=== PATIENT | female | born 1975 | race Caucasian/White ===

== ENCOUNTER 2021-01-21 06:35 | Emergency (ER) | payer OTHER, SELFPAY ==
[2021-01-21 06:38] VITALS: BP 125/84; PULSE 65; RESP 18; TEMP 36.8; O2SAT 99; BMI 36.8
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
[2021-01-21 06:55] VITALS: BMI 43.8
[2021-01-21 06:57] LABS: POC Glucose,Bedside 127 (70-110)
--- NOTE | 2021-01-21 07:00 | PC.NURSE ---
notified radiology of ct order
--- NOTE | 2021-01-21 07:10 | PC.NURSE ---
pt to ct
[2021-01-21 07:33] VITALS: BP 123/81; PULSE 57; RESP 18; TEMP 36.8; O2SAT 95
== END 2021-01-21 07:33 | disposition home or self-care (01) ==
PROVIDERS: Emergency Provider Emergency Medicine; PCP Family Medicine
DX: G44.319 Acute post-traumatic headache, not intractable (principal); V49.3XXA Car occupant (driver) (passenger) injured in unspecified nontraffic accident, initial encounter; Y92.488 Other paved roadways as the place of occurrence of the external cause
CPT/HCPCS: 70450; 82962; 99282

== ENCOUNTER 2021-02-03 17:24 | Emergency (ER) | payer OTHER, SELFPAY ==
[2021-02-03 18:16] VITALS: BP 95/57; PULSE 70; RESP 20; TEMP 37.2; O2SAT 98; BMI 33.5
--- NOTE | 2021-02-03 18:23 | XR_ITS ---
PROCEDURE INFORMATION: Exam: XR Chest Exam date and time: 02/03/2021 6:23 PM Age: 46 years old Clinical indication: Condition or disease; Patient HX: Covid positive TECHNIQUE: Imaging protocol: XR of the chest. Views: 1 view. COMPARISON: No relevant prior studies available. FINDINGS: Lungs: There are patchy interstitial infiltrates noted within both lung mclaughlin. Area of greatest involvement is within the right mid lung field. Many of the infiltrates have a peripheral distribution. Pleural spaces: Unremarkable. No pleural effusion. No pneumothorax. Heart/Mediastinum: Unremarkable. No cardiomegaly. Bones/joints: Unremarkable. Soft tissues: There is a metallic body which projects over the lateral aspect of the left 5th rib. This could could be within subcutaneous soft tissues or skin. IMPRESSION: There are bilateral patchy interstitial infiltrates noted within both lung mclaughlin. Greatest involvement is present within the left mid lung field. Progress examination is suggested..
--- NOTE | 2021-02-03 18:59 | HMH.EDGENADL ---
ED Disposition Condition on Discharge: Good - Critical Care Critical Care Time: No <Darrian Chao - Last Filed: 02/03/21 19:46> <Kevin Ledezma - Last Filed: 02/03/21 21:46> Clinical Impression: COVID-19 Disposition: Home, Self-Care Instructions: DI for COVID-19 (Suspected or Confirmed ) Additional Instructions: call pcp in am and recheck if needed Prescriptions: dexAMETHasone [Decadron] 6 mg PO DAILY #7 tab Transmission Status: Pending to [facility]/pharmacy #[id number] Referrals: Althea Gonzalez [Primary Care Provider] - Attestation: On 02/03/21, the high probability of a clinically significant, sudden or life threatening deterioration of the following system(s) required my full and direct attention, intervention and personal management. The time I documented below is in addition to time spent performing reported procedures but includes the following listed in this critical care notation. Medical Decision Making - Medical Records Medical records reviewed: Yes: I reviewed the patient's medical records. - Maged Inquiry Pt receiving controlled substance: No <Darrian Chao - Last Filed: 02/03/21 19:46> - Lab Data Lab results reviewed: Yes: I reviewed the patient's lab results. Result diagrams: 02/03/21 19:55 02/03/21 19:55 - Radiology Data #1 Image(s): Chest Image Reviewed: Yes I have reviewed radiologist's interpretation Preliminary Findings: Abnormal - CT Data CT Scan: Chest Time Received: 21:[address] Reviewed: Yes: I have viewed the radiologist's interpretation Preliminary Findings: Abnormal - ECG Data Tracing #1 Normal Sinus Rhythm: Yes Ischemic changes: non-specific ST-T wave changes <Kevin Ledezma - Last Filed: 02/03/21 21:46> Vital Signs: 02/03/21 18:16 Temperature 98.9 F Temperature Source Oral Pulse Rate [Right Radial] 70 Respiratory Rate 20 Blood Pressure [Right Arm] 95/57 L Blood Pressure Mean [Right Arm] 69 02 Sat by Pulse Oximetry 98 Oxygen Delivery Method Room Air - Lab Data Lab Results 02/03/21 19:55: WBC 5.6, RBC 5.41 H, Hgb 16.0, Hct 45.0, MCV 83.0, MCH 29.6, MCHC 35.7 H, RDW 13.3, Plt Count 298, MPV 9.5, Neut % (Auto) 75.3, Lymph % (Auto) 18.7, [place] % (Auto) 4.7, Eos % (Auto) 0.8, Baso % (Auto) 0.5, Neut # (Auto) 4.2, Lymph # (Auto) 1.1, [place] # (Auto) 0.3, Eos # (Auto) 0.1, Baso # (Auto) 0.0 02/03/21 19:55: Sodium 141, Potassium 3.2 L, Chloride 100, Carbon Dioxide 31 H, Anion Gap 13.2, BUN 16, Creatinine 0.70, Estimated Creat Clear 140, Estimated GFR 90, Est GFR ( Amer) 109, Glucose 184 H, Calcium 10.4 H, Total Bilirubin 0.5, AST 42 H, ALT 22, Alkaline Phosphatase 99, Troponin I < 0.01, Total Protein 7.4, Albumin 4.1, Globulin 3.3 H, Albumin/Globulin Ratio 1.2 Orders (Tests/Meds): ED MEDICATIONS Generic Name Dose Route Start Last Admin Trade Name Freq PRN Reason Stop Dose Admin Sodium Chloride 1,000 mls @ 999 mls/hr 02/03/21 20:30 02/03/21 20:35 Sod Chlor 0.9% 1000ml Bag IV 02/03/21 21:30 999 mls/hr .[id number] SOFI Administration Discontinued Medications Generic Name Dose Route Start Last Admin Trade Name Freq PRN Reason Stop Dose Admin Dexamethasone Sodium Phosphate 10 mg 02/03/21 20:29 02/03/21 20:36 Dexamethasone 4mg/Ml 5ml Mdv IV 02/03/21 20:30 10 mg ONCE ONE Administration Iopamidol 70 ml 02/03/21 20:52 02/03/21 20:55 Iopamidol-370 (76%);100ml Bottle IV 02/03/21 20:53 70 ml ONCE ONE Administration Sodium Chloride 50 ml 02/03/21 20:52 02/03/21 20:55 0.9 % Sodium Chloride 50 Ml Vial IV 02/03/21 20:53 50 ml ONCE ONE Administration Sodium Chloride 10 ml 02/03/21 20:52 02/03/21 20:55 Sodium Chloride 0.9% 10ml Syr (Rad Only) IV 02/03/21 20:53 10 ml ONCE ONE Administration Medical Decision Narrative: 46yo F evaluated for Covid symptoms. Patient is in no acute distress on initial evaluation. Her O2 saturation is 91 to 95% on room air. Physical exam is benign. Blood work
[2021-02-03 19:00] VITALS: BP 104/66; PULSE 80; O2SAT 94
[2021-02-03 19:30] VITALS: BP 107/79; PULSE 80; O2SAT 92
--- NOTE | 2021-02-03 19:55 | ECG_ITS ---
APPROVED REPORT Exam: Resting ECG HR:75 bpm ECG Measurements Heart Rate 75 AXES MD 134 P 14 QRSd 78 QRS 43 QT 398 T 11 QTc 444 Conclusion Normal sinus rhythm Normal ECG Electronically signed by : Chito Goodrich MD 02/04/2021 21:02:53
[2021-02-03 20:00] VITALS: BP 124/86; PULSE 73; RESP 20; O2SAT 93
[2021-02-03 20:21] LABS: Alanine Aminotransferase 22 U/L (12-78); Albumin Level 4.1 g/dl (3.5-5.0); Albumin/Globulin Ratio 1.2 (1.1-1.8); Alkaline Phosphatase 99 U/L (38-126); Anion Gap 13.2 mEq/L (5-15); Aspartate Amino Transferase 42 U/L (14-36); Bilirubin,Total 0.5 mg/dl (0.2-1.3); Blood Urea Nitrogen 16 mg/dl (7-17); Calcium 10.4 mg/dl (8.4-10.2); Carbon Dioxide 31 mmol/L (22.0-30.0); Chloride 100 mmol/L (98-107); Creatinine Clearance Estimated 140 mL/min (50-200); Estimated Glomerular Filt Rate 90 ml/min (>60); GFR (African American) 109 ML/MIN (>60); Globulin 3.3 g/dL (1.3-3.2); Glucose 184 mg/dl (74-100); Potassium 3.2 mmoL/L (3.5-5.1); Sodium 141 mmol/L (136-145); Total Protein,Serum 7.4 g/dl (6.3-8.2)
--- NOTE | 2021-02-03 20:26 | CT_ITS ---
PROCEDURE INFORMATION: Exam: CTA Chest With Contrast Exam date and time: 02/03/2021 8:26 PM Age: 46 years old Clinical indication: Shortness of breath; Chest pressure; Patient HX: SOA, chest pain, covid; Additional info: SOB TECHNIQUE: Imaging protocol: Computed tomographic angiography of the chest with contrast. 3D rendering (Not supervised by radiologist): MIP and/or 3D reconstructed images were created by the technologist. Radiation optimization: All CT scans at this facility use at least one of these dose optimization techniques: automated exposure control; mA and/or kV adjustment per patient size (includes targeted exams where dose is matched to clinical indication); or iterative reconstruction. Contrast material: ISO 370; Contrast volume: 70 ml; Contrast route: INTRAVENOUS (IV); COMPARISON: CR XR CHEST PORTABLE 02/03/2021 6:52 PM FINDINGS: Pulmonary arteries: The pulmonary trunk, main, and branch pulmonary arteries contain no filling defects. Aorta: Unremarkable. No aortic aneurysm. No aortic dissection. Lungs: Extensive amorphous infiltrates are noted within both lung mclaughlin. No predilection for upper or lower lobes. Many of the infiltrates have a peripheral distribution. 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 Pleural spaces: Unremarkable. No pneumothorax. No pleural effusion. Heart: No cardiomegaly. No pericardial effusion. Heart RV/LV ratio: Within normal limits. Coronary arteries: There is no evidence of significant coronary artery calcifications. Mediastinal space: No evidence of mediastinal or hilar mass. Lymph nodes: Unremarkable. No enlarged lymph nodes. Bones/joints: Unremarkable. No acute fracture. Soft tissues: There is a moderate hiatal hernia. Changes of sleeve gastrectomy are noted. Hepatomegaly. Cholecystectomy has been performed. IMPRESSION: 1. 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 2. No evidence of main or branch pulmonary embolism. 3. Moderate hiatal hernia. 4. Changes of sleeve gastrectomy are noted. 5. Hepatomegaly. Cholecystectomy has been performed.
[2021-02-03 20:30] LABS: Basophils % 0.5 % (0.1-2.0); Eosinophils # 0.1 K/mm3 (0.0-0.4); Eosinophils % 0.8 % (0.1-12.0); Lymphocytes # 1.1 K/mm3 (0.7-4.5); Lymphocytes % 18.7 % (10-50); Mean Corpuscular HGB Conc 35.7 g/dL (31.8-35.4); Mean Corpuscular Hemoglobin 29.6 pg (27.0-31.2); Mean Platelet Volume 9.5 fl (7.4-10.4); Monocytes # 0.3 K/mm3 (0.1-1.0); Monocytes % 4.7 % (1.7-9.3); Neutrophils # 4.2 K/mm3 (1.8-7.8); Neutrophils % 75.3 % (37.0-80.0); Platelet Count 298 K/mm3 (142-424); Red Blood Count 5.41 M/mm3 (4.20-5.40); Red Cell Distribution Width 13.3 % (11.5-17.5); White Blood Count 5.6 K/mm3 (4.8-10.8)
[2021-02-03 20:35] LABS: Troponin I < 0.01 ng/ml (0.00-0.034)
[2021-02-03 21:00] VITALS: BP 112/72; PULSE 65; O2SAT 93
[2021-02-03 21:57] VITALS: BP 119/73; PULSE 68; RESP 20; TEMP 37; O2SAT 94
== END 2021-02-03 22:01 | disposition home or self-care (01) ==
PROVIDERS: Emergency Provider Family Medicine; PCP Family Medicine
DX: U07.1 COVID-19 (principal)
CPT/HCPCS: 71045; 71275; 80053; 84484; 85025; 93005; 96365; 96375; 99283; Q9967

== ENCOUNTER → 2021-02-12 09:37 | Outpatient (CLI) | payer OTHER, SELFPAY ==
--- NOTE | 2021-02-12 09:48 | XR_ITS ---
PROCEDURE: XR CHEST 2V CLINICAL HISTORY: CHEST PAIN COMPARISON: CT CT ANGIO CHEST PE PROTOCOL from 02/03/2021 CR XR CHEST PORTABLE from 02/03/2021 FINDINGS: The cardiomediastinal silhouette and pulmonary vascularity are within normal limits. Patchy areas of consolidation once again noted bilaterally. These however have shown improvement from the previous exam. There is a metallic artifact along the chest wall anteriorly on the left. No evidence of pneumothorax. No effusions. No acute bony abnormalities. IMPRESSION: Bilateral ground-glass opacities consistent with Covid19 pneumonia which have shown some improvement. Dictated by: Delroy Moore MD 02/12/2021 16:08 Delroy Moore MD in [place] 02/12/2021 16:08
== END ==
PROVIDERS: PCP Family Medicine; Visit Provider Family Medicine
DX: R07.9 Chest pain, unspecified (principal)
CPT/HCPCS: 71046

== ENCOUNTER → 2021-03-14 10:30 | Outpatient (CLI) | payer OTHER, SELFPAY | PROVIDERS: PCP Family Medicine; Visit Provider Nurse Practitioner | DX: Z20.822 Contact with and (suspected) exposure to COVID-19 (principal) | CPT/HCPCS: C9803; U0003; U0005 ==

== ENCOUNTER 2024-01-15 19:26 | Emergency (ER) | payer BC, SELFPAY ==
[2024-01-15 19:27] VITALS: BP 157/107; PULSE 83; RESP 18; TEMP 36.6; O2SAT 97; BMI 40.8
[2024-01-15 19:32] VITALS: BP 157/107; PULSE 83; O2SAT 96
[2024-01-15 19:35] VITALS: PULSE 80; O2SAT 96
--- NOTE | 2024-01-15 19:35 | HMH.EDGENADL ---
Discharge Plan Disposition Patient Disposition: Home, Self-Care Condition: Good Prescriptions Prescriptions: New cefdinir 300 mg capsule 300 mg PO BID 10 Days Qty: 20 0RF phenazopyridine [Pyridium] 200 mg tablet 200 mg PO Q8H Qty: 6 0RF No Action dexamethasone 6 MG tablet 6 mg PO DAILY Qty: 7 0RF Referrals Follow up/Referrals: Althea Gonzalez [Primary Care Provider] - See instructions Activity Restrictions/Add. Instructions Additional Instructions/Restrictions: Increase fluids and rest. Take medications as directed. If symptoms do not improve please follow-up with your primary care physician or return to the ED Clinical Impressions Clinical Impression: Urinary tract infection Instructions Patient Instructions: DI for Urinary Tract Infection (UTI), DI for Urinary Tract Infection in Children Print Language Print Language: Malay Discharge ED Provider: Niels Diamond General Adult HPI <Gayathri Powell (ED), [employer] - Last Filed: 01/15/24 20:04> General Chief complaint: Urogenital-Female Stated complaint: Bloody urine,frequency and pain with urination Time Seen by Provider: 01/15/24 19:27 History of Present Illness HPI narrative: This is a 48-year-old female who presents to the ED today for complaint of blood in her urine, urgency, frequency and lower abdominal pain. She says pain started around noon today. No complaint of fevers, chills, nausea or vomiting. No other symptoms today. Related Data Previous Rx's ?Medication ?Instructions ?Recorded dexamethasone 6 mg tablet 6 mg PO DAILY #7 tabs 02/03/21 cefdinir 300 mg capsule 300 mg PO BID 10 days #20 caps 01/15/24 phenazopyridine 200 mg tablet 200 mg PO Q8H 6 doses #6 tabs 01/15/24 (Pyridium) Allergies Allergy/AdvReac Type Severity Reaction Status Date / Time No Known Allergies Allergy Verified 01/21/21 06:55 PFSH <Gayathri Powell (ED), [employer] - Last Filed: 01/15/24 20:04> PFS Disclaimer: The information contained in this section may have been updated after the patient was seen, as this information can be updated by other users. Social History (Updated 01/15/24 @ 20:04 by Gayathri Powell (ED), [employer]) Smoking Status: Never smoker alcohol intake: never current occupational status: employed Travel in the last 8 weeks: None Other Medical History Have you received the Flu Vaccine for this season: No Have you received the Pneumonia Vaccine: No <Gayathri Powell (ED), [employer] - Last Filed: 01/15/24 20:04> ROS Obtained: Yes Systems reviewed as appropriate & no additional complaints except as documented Constitutional Constitutional: Reports as per HPI Physical Exam <Gayathri Powell (ED), [employer] - Last Filed: 01/15/24 20:04> General General appearance: alert and in no apparent distress Head Head exam: atraumatic and normocephalic Eye Eye exam: Present normal appearance, PERRL and EOMI ENT ENT exam: Present normal exam, normal oropharynx and mucous membranes moist Neck Neck exam: Present normal inspection, full ROM and trachea midline Chest Chest inspection: Present normal inspection Respiratory Respiratory exam: Present normal lung sounds bilaterally Cardiovascular Cardiovascular exam: Present regular rate, normal rhythm, normal heart sounds, +S1 and +S2 Abdominal Exam Abdominal exam: Present soft and normal bowel sounds Neurological Exam Neurological exam: Present alert, oriented X3 and normal gait Skin Skin exam: Present warm, dry and intact Medical Decision Making <Gayathri Powell (ED), [employer] - Last Filed: 01/15/24 20:04> Medical Records Screening: Per USPSTF and CDC recommendations, given the prevalence of disease in our region, it is our hospital?s policy to screen for HIV and viral Hepatitis for all patients aged 18 and over and those with ongoing risk factors. Maged Inquiry Pt receiving controlled substance: No Maged was queried for this patient: No Vital Signs: 01/15/24 19:27 01/15/24 19:32 01/15/24 19:35 Temperature 97.9 F Temperature Source Oral Pulse Rate 83 80 Pulse Rate [Right Radial] 83 Respiratory Rate 18 Blood Pressure 157/107 H Blood Pressure [Right Arm] 157/107 H Blood Pressure Mean Blood Pressure Mean [Right Arm] 123 Blood Pressure Source [Right Arm] Automatic Cuff Blood Pressure Position [Right Arm] Supine 02 Sat by Pulse Oximetry 97 96 96 Oxygen Delivery Method Room Air 01/15/24 20:20 01/15/24 20:35 Temperature 97.8 F Temperature Source Pulse Rate 88 Pulse Rate [Right Radial] Respiratory Rate 16 Blood Pressure 129/76 128/78 Blood Pressure [Right Arm] Blood Pressure Mean 93 Blood Pressure Mean [Right Arm] Blood Pressure Source [Right Arm] Blood Pressure Position [Right Arm] 02 Sat by Pulse Oximetry Oxygen Delivery Method Lab Data Lab Results 01/15/24 19:31: Urine Color Red, Urine Appearance Cloudy, Urine pH 6.5, Ur Specific [place] >= 1.030, Urine Protein 3+ A, Urine Glucose (UA) 1+, Urine Ketones Trace, Urine Blood 3+ A, Urine Nitrate Positive, Urine Bilirubin Negative, Urine Urobilinogen 1.0, Ur Leukocyte Esterase Trace, Urine RBC 50-100, Urine WBC Occasional, Ur Squamous Epith Cells Occasional, Urine Bacteria Trace, Urine HCG, Qual Negative 01/15/24 19:42: WBC 9.8, RBC 5.05, Hgb 14.2, Hct 41.7, MCV 82.7, MCH 28.1, MCHC 34.0, RDW 13.4, Plt Count 324, MPV 8.5, Neut % (Auto) 69.2, Lymph % (Auto) 23.5, [place] % (Auto) 5.0, Eos % (Auto) 1.5, Baso % (Auto) 0.8, Neut # (Auto) 6.8, Lymph # (Auto) 2.3, [place] # (Auto) 0.5, Eos # (Auto) 0.2, Baso # (Auto) 0.1, Sodium 139, Potassium 3.4 L, Chloride 102, Carbon Dioxide 29, Anion Gap 11.4, BUN 14, Creatinine 0.60, Estimated Creat Clear 195, Estimated GFR 107, Est GFR ( Amer) 129, Glucose 229 H, Calcium 9.5, Total Bilirubin 0.5, AST 27, ALT 25, Alkaline Phosphatase 64, Total Protein 7.4, Albumin 4.2, Globulin 3.2, Albumin/Globulin Ratio 1.3, Hepatitis C Antibody Non reactive, HIV 1&2 Antibody Rapid Nonreactive 01/15/24 19:42 01/15/24 19:42 Orders (Tests/Meds): ED MEDICATIONS Discontinued Medications Generic Name Dose Route Start Last Admin Trade Name Freq PRN Reason Stop Dose Admin Cefdinir 300 mg 01/15/24 20:27 01/15/24 20:30 Cefdinir 300mg Capsule PO 01/15/24 20:28 300 mg ONCE ONE Administration Phenazopyridine HCl 200 mg 01/15/24 20:26 01/15/24 20:30 Phenazopyridine 200mg Tablet PO 01/15/24 20:27 200 mg ONCE ONE Administration ORDERS Category Date Time Status CBC w/Auto Diff [Complete Blood Count Auto Diff] Stat Lab 01/15/24 19:42 Completed CMP [Comprehensive Metabolic Panel] Stat Lab 01/15/24 19:42 Completed HIV (1&2) Antibody Rapid Stat Lab 01/15/24 19:42 Completed Hep C Ab with Reflex to RNA Stat Lab 01/15/24 19:42 Completed Urinalysis-Acute [Urinalysis and Microscopic] Stat Lab 01/15/24 19:31 Completed Urine , HCG Qual. Stat Lab 01/15/24 19:31 Completed Medical Decision Narrative: Insert review patient is a 48-year-old female presenting to the emergency department for evaluation of blood in urine, frequency and urgency that started at noon today. She has not had fevers or chills no nausea or vomiting. Patient is hemodynamically stable and nontoxic-appearing upon arrival, afebrile. Differential diagnosis includes UTI, kidney stone although I did consider a CT scan patient has no history this is less likely amongst others. Workup will be conducted with hematologic labs. Initial inventions include no interventions here in the ED. Initial workup reviewed by me hematologic labs are remarkable for UTI. Formal imaging considered but not done as imaging not needed. Patient safe for discharge home <Niels Diamond MD - Last Filed: 01/18/24 07:17> Vital Signs: 01/15/24 19:27 01/15/24 19:32 01/15/24 19:35 Temperature 97.9 F Temperature Source Oral Pulse Rate 83 80 Pulse Rate [Right Radial] 83 Respiratory Rate 18 Blood Pressure 157/107 H Blood Pressure [Right Arm] 157/107 H Blood Pressure Mean Blood Pressure Mean [Right Arm] 123 Blood Pressure Source [Right Arm] Automatic Cuff Blood Pressure Position [Right Arm] Supine 02 Sat by Pulse Oximetry 97 96 96 Oxygen Delivery Method Room Air 01/15/24 20:20 01/15/24 20:35 Temperature 97.8 F Temperature Source Pulse Rate 88 Pulse Rate [Right Radial] Respiratory Rate 16 Blood Pressure 129/76 128/78 Blood Pressure [Right Arm] Blood Pressure Mean 93 Blood Pressure Mean [Right Arm] Blood Pressure Source [Right Arm] Blood Pressure Position [Right Arm] 02 Sat by Pulse Oximetry Oxygen Delivery Method Lab Data Lab Results 01/15/24 19:31: Urine Color Red, Urine Appearance Cloudy, Urine pH 6.5, Ur Specific [place] >= 1.030, Urine Protein 3+ A, Urine Glucose (UA) 1+, Urine Ketones Trace, Urine Blood 3+ A, Urine Nitrate Positive, Urine Bilirubin Negative, Urine Urobilinogen 1.0, Ur Leukocyte Esterase Trace, Urine RBC 50-100, Urine WBC Occasional, Ur Squamous Epith Cells Occasional, Urine Bacteria Trace, Urine HCG, Qual Negative 01/15/24 19:42: WBC 9.8, RBC 5.05, Hgb 14.2, Hct 41.7, MCV 82.7, MCH 28.1, MCHC 34.0, RDW 13.4, Plt Count 324, MPV 8.5, Neut % (Auto) 69.2, Lymph % (Auto) 23.5, [place] % (Auto) 5.0, Eos % (Auto) 1.5, Baso % (Auto) 0.8, Neut # (Auto) 6.8, Lymph # (Auto) 2.3, [place] # (Auto) 0.5, Eos # (Auto) 0.2, Baso # (Auto) 0.1, Sodium 139, Potassium 3.4 L, Chloride 102, Carbon Dioxide 29, Anion Gap 11.4, BUN 14, Creatinine 0.60, Estimated Creat Clear 195, Estimated GFR 107, Est GFR ( Amer) 129, Glucose 229 H, Calcium 9.5, Total Bilirubin 0.5, AST 27, ALT 25, Alkaline Phosphatase 64, Total Protein 7.4, Albumin 4.2, Globulin 3.2, Albumin/Globulin Ratio 1.3, Hepatitis C Antibody Non reactive, HIV 1&2 Antibody Rapid Nonreactive Orders (Tests/Meds): ED MEDICATIONS Discontinued Medications Generic Name Dose Route Start Last Admin Trade Name Freq PRN Reason Stop Dose Admin Cefdinir 300 mg 01/15/24 20:27 01/15/24 20:30 Cefdinir 300mg Capsule PO 01/15/24 20:28 300 mg ONCE ONE Administration Phenazopyridine HCl 200 mg 01/15/24 20:26 01/15/24 20:30 Phenazopyridine 200mg Tablet PO 01/15/24 20:27 200 mg ONCE ONE Administration ORDERS Category Date Time Status CBC w/Auto Diff [Complete Blood Count Auto Diff] Stat Lab 01/15/24 19:42 Completed CMP [Comprehensive Metabolic Panel] Stat Lab 01/15/24 19:42 Completed HIV (1&2) Antibody Rapid Stat Lab 01/15/24 19:42 Completed Hep C Ab with Reflex to RNA Stat Lab 01/15/24 19:42 Completed Urinalysis-Acute [Urinalysis and Microscopic] Stat Lab 01/15/24 19:31 Completed Urine , HCG Qual. Stat Lab 01/15/24 19:31 Completed Medical Decision Narrative: Insert review patient is a 48-year-old female presenting to the emergency department for evaluation of blood in urine, frequency and urgency that started at noon today. She has not had fevers or chills no nausea or vomiting. Patient is hemodynamically stable and nontoxic-appearing upon arrival, afebrile. Differential diagnosis includes UTI, kidney stone although I did consider a CT scan patient has no history this is less likely amongst others. Workup will be conducted with hematologic labs. Initial inventions include no interventions here in the ED. Initial workup reviewed by me hematologic labs are remarkable for UTI. Formal imaging considered but not done as imaging not needed and symptoms explained by patient's workup.. Patient safe for discharge home I was consulted by the ANNI, and we discussed the complexity of the problems being addressed. I approved the treatment and management plan for this patient's care in the Emergency Department, thus performing a substantive portion of the medical decision making. Niels Diamond MD Critical Care <Gayathri Powell (ED), [employer] - Last Filed: 01/15/24 20:04> Critical Care Time Critical Care Time: No
[2024-01-15 19:38] LABS: Bilirubin,Urine Negative (Negative); Blood, Urine 3+ (Negative); Glucose,Urine (UA) 1+ (Negative); Ketones,Urine TRACE (Negative); Leukocyte Esterase,Urine TRACE (Negative); Nitrate,Urine POSITIVE (Negative); PH,Urine 6.5 (5.0-8.5); Protein,Urine 3+ (Negative); Specific Gravity, Urine >= 1.030 (1.005-1.030)
[2024-01-15 19:39] LABS: Appearance,Urine Cloudy (Clear); Color,Urine Red (Yellow); Microscopic, Urine URINE MICROSCOPIC (MICROSCOPIC)
[2024-01-15 19:40] LABS: Urine Pregnancy, HCG Qual. Negative (Negative)
[2024-01-15 19:52] LABS: Bacteria,Urine Trace /lpf; RBC,Urine 50-100 #/hpf (0-3); Squamous Epithelial Cell,Urine Occasional #/hpf (0-5); WBC,Urine Occasional #/hpf (0-3)
[2024-01-15 19:57] LABS: Albumin Level 4.2 g/dl (3.5-5.0); Chloride 102 mmol/L (98-107); Potassium 3.4 mmoL/L (3.5-5.1); Sodium 139 mmol/L (136-145)
[2024-01-15 19:59] LABS: Blood Urea Nitrogen 14 mg/dl (7-17); Creatinine Clearance Estimated 195 mL/min (50-200); Estimated Glomerular Filt Rate 107 ml/min (>60); GFR (African American) 129 ML/MIN (>60)
[2024-01-15 20:00] LABS: Alanine Aminotransferase 25 U/L (12-78); Albumin/Globulin Ratio 1.3 (1.1-1.8); Alkaline Phosphatase 64 U/L (38-126); Anion Gap 11.4 mEq/L (5-15); Aspartate Amino Transferase 27 U/L (14-36); Bilirubin,Total 0.5 mg/dl (0.2-1.3); Calcium 9.5 mg/dl (8.4-10.2); Carbon Dioxide 29 mmol/L (22.0-30.0); Globulin 3.2 g/dL (1.3-3.2); Glucose 229 mg/dl (74-100); Total Protein,Serum 7.4 g/dl (6.3-8.2)
[2024-01-15 20:04] LABS: Basophils # 0.1 K/mm3 (0-0.2); Basophils % 0.8 % (0.1-2.0); Eosinophils # 0.2 K/mm3 (0.0-0.4); Eosinophils % 1.5 % (0.1-12.0); Hematocrit 41.7 % (37.0-47.0); Hemoglobin 14.2 g/dL (12.2-16.2); Lymphocytes # 2.3 K/mm3 (0.7-4.5); Lymphocytes % 23.5 % (10-50); Mean Corpuscular Hemoglobin 28.1 pg (27.0-31.2); Mean Corpuscular Volume 82.7 fl (81-99); Mean Platelet Volume 8.5 fl (7.4-10.4); Monocytes # 0.5 K/mm3 (0.1-1.0); Neutrophils # 6.8 K/mm3 (1.8-7.8); Neutrophils % 69.2 % (37.0-80.0); Platelet Count 324 K/mm3 (142-424); Red Blood Count 5.05 M/mm3 (4.20-5.40); Red Cell Distribution Width 13.4 % (11.5-17.5); White Blood Count 9.8 K/mm3 (4.8-10.8)
[2024-01-15 20:20] VITALS: BP 129/76
[2024-01-15] MEDS: PHENAZOPYRIDINE 200MG TABLET 200 MG PO (20:30)
[2024-01-15] MEDS: CEFDINIR 300MG CAPSULE 300 MG PO (20:30)
[2024-01-15 20:35] VITALS: BP 128/78; PULSE 88; RESP 16; TEMP 36.6; O2SAT 96
[2024-01-15 21:51] LABS: HIV (1&2) Antibody Rapid NONREACTIVE (NONREACTIVE)
[2024-01-18 05:14] LABS: HCV Ab Non Reactive (Non Reactive)
--- NOTE | 2024-01-21 08:54 | PC.NURSE ---
discussed urine culture with , pt dc with cefdinir, ntd
--- NOTE | 2024-01-23 09:10 | PC.NURSE ---
URINE CULTURE DISCUSSED WITH DR GAGNON, NO NEW ORDERS
== END 2024-01-15 20:37 | disposition home or self-care (01) ==
PROVIDERS: Nurse Practitioner; Emergency Provider Emergency Medicine; PCP Family Medicine
DX: N39.0 Urinary tract infection, site not specified (principal); R35.0 Frequency of micturition; R30.9 Painful micturition, unspecified; R39.15 Urgency of urination; R10.30 Lower abdominal pain, unspecified
CPT/HCPCS: 80053; 81001; 81025; 85025; 86803; 87086; 87088; 87186; 87389; 99283